=== PATIENT | female | born 1965 | race Caucasian/White ===

== ENCOUNTER → 2021-02-07 11:15 | Outpatient (BNVA) | payer MEDICARE, MEDICAID, SELFPAY | PROVIDERS: PCP Internal Medicine; Visit Provider Nurse Practitioner Family | DX: M54.12 Radiculopathy, cervical region (principal) | CPT/HCPCS: 99202 ==

== ENCOUNTER 2021-03-25 06:49 | Outpatient (REF) | payer MEDICARE, MEDICAID, SELFPAY | END 2021-03-25 06:50 | disposition home or self-care (01) | LOC: HO.RADIR 06:49 | PROVIDERS: Visit Provider Anesthesiology | DX: M54.12 Radiculopathy, cervical region (principal) | CPT/HCPCS: J3300; Q9967 ==

== ENCOUNTER 2022-04-22 09:59 | Outpatient (REF) | payer OTHER, SELFPAY ==
--- NOTE | 2022-04-22 14:42 | MHC.AU.HAS ---
Hearing Aid Evaluation Date of Visit: 04/22/22 Historical Information: Description of Hearing: Profound mixed hearing loss, bilaterally Current personal amplification information: Oticon Dynamo SP8 [id number] hearing aids purchased in 2017 Summary: Sherley used a [id number] liliana for the duration of today's appointment. 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 In 2019, she had an upper respiratory infection that affected her ears. She had surgery on her right ear, which reportedly caused complete hearing loss on that side. Following the decrease in her hearing, she reportedly did not qualify for a cochlear implant due to abnormal bone structures. Her records have been requested from [facility] as well as from [facility] but are not available at this time for review. Sherley is hoping new hearing aids will help her be able to better participate in small group conversations, understand the sermon at [employer], as well as listen to and enjoy music again. Discussed realistic expectations with hearing aids in relation to severity of hearing loss as well as possible use of remote microphone. Hearing Aid Prescription: Based on the individual?s shared listening needs, communication environments, dexterity, desire for connectivity, and personal preferences, the following prescription for amplification has been made: Right ear: Esl Instructional Assistant: Phonak Model: Kandi P70-UP Battery Size: 675 Color: Sand Beige Type of Mold: Microsonic M45 half shell Left ear: Left ear prescription to be same as Right Hearing Aid above: Esl Instructional Assistant: Phonak Model: Kandi P70-UP Battery Size: 675 Color: Sand Beige Type of Mold: Microsonic M45 full shell Accessories/Assistive Technology Recommended: Joshua ON Plan of Care: Patient wishes to purchase hearing aids as prescribed Action Taken/Action Needed: Earmold impressions taken - in hold drawer. Hearing aids and ear molds will be ordered pending approval through [employer] Primary Diagnosis: H90.6 Mixed Hearing Loss, Bilateral Signature: Provider: Vilma Correa, [facility]
== END 2022-04-22 10:00 | disposition home or self-care (01) ==
LOC: HO.SH 09:59
PROVIDERS: PCP Internal Medicine Rheumatology; Visit Provider Nurse Practitioner Pediatrics
DX: Z46.1 Encounter for fitting and adjustment of hearing aid (principal); Z01.118 Encounter for examination of ears and hearing with other abnormal findings; H90.6 Mixed conductive and sensorineural hearing loss, bilateral
CPT/HCPCS: 92591

== ENCOUNTER 2022-07-07 14:34 | Outpatient (REF) | payer OTHER, SELFPAY ==
--- NOTE | 2022-07-08 09:05 | MHC.AU.HA2 ---
Hearing Instrument Fitting- Adult- Binaural Date of Visit: 07/07/22 Hearing Instruments Dispensed: Right Ear: Make, Model, Color, Serial Number: Kimberlee Ahujaida P70-UP SN: [id number] Color: Sand Beige Cellar Worker Repair Warranty: 09/15/2025 Cellar Worker Loss and Damage Warranty: 09/15/2025 [facility] Service Plan: 07/07/2023 Battery Size: 675 Earmold/Dome/CShell/SlimTip: Microsonic M35 Canal Shell, no vent Left Ear: Make, Model, Color, Serial Number: Kimberlee Kandi P70-UP SN: [id number] Color: Sand Beige Cellar Worker Repair Warranty: 09/15/2025 Cellar Worker Loss and Damage Warranty: 09/15/2025 [facility] Service Plan: 07/07/2023 Battery Size: 675 Earmold/Dome/CShell/SlimTip: Microsonic M35 Canal Shell, no vent Summary of Fitting: Performed feedback manager willow and attempted real ear measurements. Due to severity of loss and limits of feedback curve, Sherley reported very minimal benefit from the hearing aids, if any at all. She reportedly could barely hear speech or any other environmental sounds in office. Sherley was hoping new hearing aids would help her hear music as well as the sermon at [employer]. As previously discussed, reexplained the limitations of hearing aids in regards to her hearing loss. Discussed option to try Oticon ultra power hearing aids; however, emphasized realistic expectations with any hearing aid. Sherley opted to pursue a trial with Oticon hearing aids. She will use the current Phonak hearing aids until the Oticon hearing aids arrive for trial. Recommendations: Will order Oticon Xceed 2 BTE UP hearing aids for trial. Once they arrive, Sherley will be contacted to schedule another fitting appointment. She will decide at that appointment which hearing aids (Phonak or Oticon), if any, she prefers. Diagnosis Code(s): Primary Diagnosis: H90.3 Bilateral Sensorineural Hearing Loss Signature: Provider: Vilma Correa, [facility]
== END 2022-07-07 14:35 | disposition home or self-care (01) ==
LOC: HO.HAP 14:34
PROVIDERS: Visit Provider Internal Medicine Rheumatology
DX: Z46.1 Encounter for fitting and adjustment of hearing aid (principal); H90.3 Sensorineural hearing loss, bilateral
CPT/HCPCS: V5011; V5020; V5160; V5261; V5264

== ENCOUNTER 2022-07-24 13:31 | Outpatient (REF) | payer OTHER, SELFPAY ==
--- NOTE | 2022-07-24 16:13 | MHC.AU.HA2 ---
Hearing Instrument Fitting- Adult- Binaural Date of Visit: 07/24/22 Hearing Instruments Dispensed: Right Ear: Make, Model, Color, Serial Number: Ottammy Xceed 2 BTE UP SN: [id number] Color: Chroma Beige Saddle And Harness Maker Repair Warranty: 08/07/2025 Saddle And Harness Maker Loss and Damage Warranty: 08/07/2025 [facility] Service Plan: 07/24/2023 Battery Size: 675 Earmold/Dome/CShell/SlimTip: Microsonic M35 Canal Shell, no vent Left Ear: Make, Model, Color, Serial Number: Ottammy Xceed 2 BTE UP SN: [id number] Color: Chroma Beige Saddle And Harness Maker Repair Warranty: 08/07/2025 Saddle And Harness Maker Loss and Damage Warranty: 08/07/2025 [facility] Service Plan: 07/24/2023 Battery Size: 675 Earmold/Dome/CShell/SlimTip: Microsonic M35 Canal Shell, no vent Summary of Fitting: Performed feedback studio operations manager. Attempted real ear measurements - due to severity of loss, cannot meet targets. However, Sherley noticed an immediate difference compared to the Phonak hearing aids. She reported that she could hear my voice as well as her own voice. Although, she could not understand the speech, it is a great improvement compared to the Phonak hearing aids where she could not hear any speech at all. Reemphasized realistic expectations as Sherley reiterated that she wants to hear the birds, babbling ruiz, music, etc. Reviewed care and use. Did not pair to cellphone as Sherley rarely uses it. She returned the Phonak hearing aids which were returned to [employer] for credit. Recommendations: A hearing instrument follow-up is recommended in 2-3 weeks. Diagnosis Code(s): Primary Diagnosis: H90.3 Bilateral Sensorineural Hearing Loss Signature: Provider: Vilma Correa, [facility]
== END 2022-07-24 13:32 | disposition home or self-care (01) ==
LOC: HO.HAP 13:31
PROVIDERS: Visit Provider Internal Medicine Rheumatology
DX: Z13.89 Encounter for screening for other disorder (principal)

== ENCOUNTER 2022-08-10 10:25 | Outpatient (REF) | payer OTHER, SELFPAY ==
--- NOTE | 2022-08-10 11:00 | MHC.AU.HA3 ---
Hearing Instrument Follow-Up- Binaural Date of Visit: 08/10/22 Right Ear: Make, Model, Color, Serial Number: Ottammy Xceed 2 BTE UP SN: [id number] Color: Chroma Beige Professional System Administrator Repair Warranty: 08/07/2025 Professional System Administrator Loss and Damage Warranty: 08/07/2025 [facility] Service Plan: 07/24/2023 Battery Size: 675 Earmold/Dome/CShell/SlimTip:Microsonic M35 Canal Shell, no vent Dispensed By: [facility] Date of Fittin07/24/2022 Left Ear: Make, Model, Color, Serial Number: Ottammy Xceed 2 BTE UP SN: [id number] Color: Chroma Beige Professional System Administrator Repair Warranty: 08/07/2025 Professional System Administrator Loss and Damage Warranty: 08/07/2025 [facility] Service Plan: 07/24/2023 Battery Size: 675 Earmold/Dome/CShell/SlimTip: Microsonic M35 Canal Shell, no vent Dispensed By: [facility] Date of Fittin07/24/2022 Follow-Up Summary: Overall, Sherley notices some benefit with these hearing aids. She can hear certain notes on the organ at [employer] as well as hear her financial health counselor's voice, which is an improvement compared to her old hearing aids. She reportedly uses headphones over her hearing aids to hear the television and relies on lip reading as well. Although she often cannot understand speech, Sherley is happier with these hearing aids. Data logging showed about 15 hours of use per day. Retubed molds and cut tubing longer at Sherley's request. Recommendations: Hearing instrument maintenance in 6 months, or sooner if needed. Please contact our clinic with any questions or concerns. Diagnosis Code(s): Primary Diagnosis: H90.3 Bilateral Sensorineural Hearing Loss Signature: Provider: Vilma Correa, [facility]
== END 2022-08-10 10:26 | disposition home or self-care (01) ==
LOC: HO.HAP 10:25
PROVIDERS: Visit Provider Internal Medicine Rheumatology
DX: Z13.89 Encounter for screening for other disorder (principal)

== ENCOUNTER 2023-07-19 12:58 | Outpatient (REF) | payer OTHER, SELFPAY ==
--- NOTE | 2023-07-19 13:54 | MHC.AU.HA3 ---
Hearing Instrument Follow-Up- Binaural Date of Visit: 07/19/23 Right Ear: Make, Model, Color, Serial Number: Oticon Xceed 2 BTE UP SN: [id number] Color: Chroma Beige Carpet Layer Helper Repair Warranty: 08/07/2025 Carpet Layer Helper Loss and Damage Warranty: 08/07/2025 [facility] Service Plan: 07/24/2023 Battery Size: 675 Exerciser Horse/Slim Tube: Earmold/Dome/CShell/SlimTip:Microsonic M35 Canal Shell, no vent Type of Wax Guard: Dispensed By: [facility] Date of Fittin07/24/2022 Left Ear: Make, Model, Color, Serial Number: Oticon Xceed 2 BTE UP SN: [id number] Color: Chroma Beige Carpet Layer Helper Repair Warranty: 08/07/2025 Carpet Layer Helper Loss and Damage Warranty: 08/07/2025 [facility] Service Plan: 07/24/2023 Battery Size: 675 Exerciser Horse/Slim Tube: NA Earmold/Dome/CShell/SlimTip: Microsonic M35 Canal Shell, no vent Type of Wax Guard: Dispensed By: [facility] Date of Fittin07/24/2022 Follow-Up Summary: Here for tube change. Both tubes are notably hard. Cleaned aids and earmolds, replaced tubing, listening check positive. No other concerns at this time. Recommendations: Recommendations: Hearing instrument maintenance in 6 months, or sooner if needed. Diagnosis Code(s): Primary Diagnosis: H90.3 Bilateral Sensorineural Hearing Loss Signature: Provider: Vilma Sanchez, [facility]
== END 2023-07-19 12:59 | disposition home or self-care (01) ==
LOC: HO.HAP 12:58
PROVIDERS: PCP Internal Medicine Rheumatology; Visit Provider Internal Medicine Rheumatology
DX: Z13.89 Encounter for screening for other disorder (principal)

== ENCOUNTER 2023-12-14 10:24 | Outpatient (REF) | payer OTHER, SELFPAY ==
--- NOTE | 2023-12-14 11:20 | MHC.AU.HA3 ---
Hearing Instrument Follow-Up- Binaural Date of Visit: 12/14/23 Right Ear: Make, Model, Color, Serial Number: Oticon Xceed 2 BTE UP SN: [id number] Color: Chroma Beige Water Trainer Repair Warranty: 08/07/2025 Water Trainer Loss and Damage Warranty: 08/07/2025 [facility] Service Plan: 07/24/2023 Battery Size: 675 Earmold/Dome/CShell/SlimTip:Microsonic M35 Canal Shell, no vent Dispensed By: [facility] Date of Fittin07/24/2022 Left Ear: Make, Model, Color, Serial Number: Oticon Xceed 2 BTE UP SN: [id number] Color: Chroma Beige Water Trainer Repair Warranty: 08/07/2025 Water Trainer Loss and Damage Warranty: 08/07/2025 [facility] Service Plan: 07/24/2023 Battery Size: 675 Earmold/Dome/CShell/SlimTip: Microsonic M35 Canal Shell, no vent Dispensed By: [facility] Date of Fittin07/24/2022 Follow-Up Summary: Sherley was on the schedule for a hearing test today but was only looking for hearing aid maintenance. Accompanied by Dana today. Offered hearing test but she declined due to time constraints. Reports hearing feels stable, no new concerns for hearing. Cleaned and checked hearing aids, found moisture in tubes. Cleaned ear molds. Ran aids through dehumidifier. Replaced tubing. Listening check positive. Sherley reports good subjective comfort and benefit. Recommendations: Recommendations: Hearing instrument maintenance in 6 months, or sooner if needed. Diagnosis Code(s): Primary Diagnosis: H90.3 Bilateral Sensorineural Hearing Loss Signature: Provider: Vilma Sanchez, [facility]A
== END 2023-12-14 10:25 | disposition home or self-care (01) ==
LOC: HO.SH 10:24
PROVIDERS: Visit Provider Internal Medicine Rheumatology
DX: Z01.118 Encounter for examination of ears and hearing with other abnormal findings (principal); H90.3 Sensorineural hearing loss, bilateral
CPT/HCPCS: 92593; 99499